=== PATIENT | male | born 1980 | race African-American/Black ===

== ENCOUNTER 2017-09-09 08:22 | Emergency (ER) | payer MEDICAID ==
[~2017-09-09] VITALS: Ht 177.8 cm; Wt 71.0 kg
[2017-09-09] MEDS ORDERED: HYDROCODONE/ACETAMINOPHEN 5/325MG TABLET PO ONE (09:45)
[2017-09-09] MEDS ORDERED: BACITRACIN ZINC OINT UDPKT TOP ONE (09:45)
[2017-09-09] MEDS ORDERED: LIDOCAINE HCL 1% 20ML VIAL (Pyxis) INJ MC ONE (09:45)
[2017-09-09 10:45] VITALS: BP 119/82
== END 2017-09-09 12:25 | disposition home or self-care (01) ==
LOC: ER 08:27 → EDBD 08:27 → ER 12:25
DX: L02.411 Cutaneous abscess of right axilla (principal)
CPT/HCPCS: 10060; 87070; 87205; 99283; J3490; Z7610

== ENCOUNTER 2017-09-11 07:43 | Emergency (ER) | payer MEDICAID ==
[~2017-09-11] VITALS: Ht 177.8 cm; Wt 71.0 kg
[2017-09-11] MEDS ORDERED: IBUP-2029 PO (07:49)
[2017-09-11] MEDS ORDERED: CEPH-569 PO (07:49)
[2017-09-11] MEDS ORDERED: ACETAMINOPHEN WITH CODEINE 300/30MG TABLET PO ONE (08:45)
[2017-09-11 09:15] VITALS: BP 118/74
== END 2017-09-11 09:26 | disposition home or self-care (01) ==
LOC: ER 07:52
DX: L02.411 Cutaneous abscess of right axilla (principal); F17.200 Nicotine dependence, unspecified, uncomplicated
CPT/HCPCS: 99283; X7700; Z7610